=== PATIENT | female | born 1960 | race Caucasian/White ===

== ENCOUNTER 2019-06-09 21:19 | Emergency (ER) | payer OTHER ==
[2019-06-09] MEDS ORDERED: hydrOXYzine HCL TAB* 25 MG PO ONE (21:35)
[2019-06-09] MEDS ORDERED: Famotidine TAB* 20 MG PO ONE (21:35)
[2019-06-09] MEDS ORDERED: predniSONE TAB* 50 MG PO ONE (21:36)
--- NOTE | 2019-06-09 22:24 | ED ---
Allergic Reaction/Systemic - HPI Summary HPI Summary: This patient is a 59 year old M presenting to [facility] with a chief complaint of multiple yellow jacket stings on left wrist, right ankle, and right forearm since today at 2030. Pt took Claritin 10 mg [employer] and feels better now. She states her son and mother had anaphylactic shock from bee stings. The patient rates the pain 5/10 in severity. Symptoms aggravated by nothing. Symptoms alleviated by nothing. Patient reports tongue swelling, hives, lightheadedness. Patient denies hx of allergic response to bee venom, any medical history, and use of medications. - History of Current Complaint Chief Complaint: EDAllergicReaction Time Seen by Provider: 06/09/19 21:29 Hx Obtained From: Patient Onset/Duration: Sudden Onset, Started hours ago - 2, Still Present Timing: Constant, Lasting Hours - 2 Severity Initially: Moderate Severity Currently: Mild Pain Intensity: 5 Pain Scale Used: 0-10 Numeric Location: Other - yellow jacket stings on left wrist, right ankle, and right forearm Aggravating Factor(s): Nothing Alleviating Factor(s): Nothing Associated Signs And Symptoms: Positive: Lightheadedness, Rash - hives, Other: - positive - tongue swelling - Allergies/Home Medications Allergies/Adverse Reactions: Allergies Allergy/AdvReac Type Severity Reaction Status Date / Time No Known Allergies Allergy Verified 06/09/19 21:26 PMH/Surg Hx/FS Hx/Imm Hx Previously Healthy: No Endocrine/Hematology History: Denies: Hx Blood Disorders Cardiovascular History: Denies: Hx Aneurysm, Hx Atrial Fibrillation Respiratory History: Denies: Hx Asthma GI History: Denies: Hx Diverticulosis Sensory History: Denies: Hx Legally Blind, Hx Hearing Problem EENT History: Denies: Hx Deafness - Surgical History Surgical History: Unable to Obtain/Confirm Infectious Disease History: No Infectious Disease History: Reports: Traveled Outside the [place] in Last 30 Days - Family History Known Family History: Positive: Other - son and mother had anaphylactic shocks from bee stings - Social History Alcohol Use: None Hx Substance Use: No Substance Use Type: Reports: None Hx Tobacco Use: No Smoking Status (MU): Never Smoked Tobacco Review of Systems ENT: Other - positive - tongue swelling Skin: Other - positive - hives Neurological: Other - positive - lightheadedness All Other Systems Reviewed And Are Negative: Yes Physical Exam - Summary Physical Exam Summary: VITAL SIGNS: Reviewed. GENERAL: Patient is a well-developed and nourished FEMALE who is lying comfortable in the stretcher. Patient is not in any acute respiratory distress. HEAD AND FACE: No signs of trauma. No ecchymosis, hematomas or skull depressions. No sinus tenderness. EYES: PERRLA, EOMI x 2, No injected conjunctiva, no nystagmus. EARS: Hearing grossly intact. Ear canals and tympanic membranes are within normal limits. MOUTH: Oropharynx within normal limits. NECK: Supple, trachea is midline, no adenopathy, no JVD, no carotid bruit, no c- spine tenderness, neck with full ROM CHEST: Symmetric, no tenderness at palpation LUNGS: Clear to auscultation bilaterally. No wheezing or crackles. CVS: Regular rate and rhythm, S1 and S2 present, no murmurs or gallops appreciated. ABDOMEN: Soft, non-tender. No signs of distention. No rebound no guarding, and no masses palpated. Bowel sounds are normal. EXTREMITIES: FROM in all major joints, no edema, no cyanosis or clubbing. NEURO: Alert and oriented x 3. No acute neurological deficits. Speech is normal and follows commands. SKIN: Erythema and edema at left wrist, right ankle and right forearm. Dry and warm Triage Information Reviewed: Yes Vital Signs On Initial Exam: Initial Vitals Temp Pulse Resp BP Pulse Ox 98.3 F 60 16 141/59 98 06/09/19 21:20 06/09/19 21:20 06/09/19 21:20 06/09/19 21:20 06/09/19 21:20 Vital Signs Reviewed: Yes Diagnostics - Vital Signs Vital Signs Temp Pulse Resp BP Pulse Ox 06/09/19 21:31 59 16 130/79 98 06/09/19 21:20 98.3 F 60 16 141/59 98 - Laboratory Lab Statement: Any lab studies that have been ordered have been reviewed, and results considered in the medical decision making process. Allergic Reaction Course/Dx - Course Course Of Treatment: This patient is a 59 year old M presenting to [facility] with a chief complaint of multiple yellow jacket stings on left wrist, right ankle, and right forearm since today at 2030. Pt took Claritin 10 mg [employer] and feels better now. She states her son and mother had anaphylactic shock from bee stings. The patient rates the pain 5/10 in severity. Symptoms aggravated by nothing. Symptoms alleviated by nothing. Patient reports tongue swelling, hives , lightheadedness. Patient denies hx of allergic response to bee venom, any medical history, and use of medications. Physical exam shows erythema and edema at left wrist, right ankle and right forearm. During the ED course, the pt was given Pepcid TAB, Atarax TAB, and Deltasone TAB. Dx is insect bite/ sting. Pt is agreeable to discharge. Pt was told to follow up with a primary care provider within 1-2 days and to return to the ED for any new or worsening symptoms. - Diagnoses Provider Diagnoses: Allergic reaction Discharge - Sign-Out/Discharge Documenting (check all that apply): Patient Departure - discharge Patient Received Moderate/Deep Sedation with Procedure: No - Discharge Plan Condition: Stable Disposition: HOME Prescriptions: hydrOXYzine HCL TAB* [Atarax 25 MG TAB*] 25 mg PO QID PRN #20 tab PRN Reason: Itching predniSONE TAB* [Deltasone TAB*] 50 mg PO DAILY #5 tab Patient Education Materials: Insect Bite or Sting (ED) Referrals: No Primary Care Phys,NOPCP [Primary Care Provider] - [facility] [Outside] - 1 Day Additional Instructions: Follow up with a primary care provider within 1-2 days. Return to the ED for any new or worsening symptoms. - Attestation Statements Document Initiated by Jarrettibe: Yes Documenting Scribe: Benito Hamilton Provider For Whom Rosemary is Documenting (Include Credential): Dr. Nohelia Vega MD Scribe Attestation: IBenito scribed for Dr. Nohelia Vega MD on 06/10/19 at 0106. Status of Scribe Document: Ready
[2019-06-09 22:31] VITALS: BP 119/80
== END 2019-06-09 22:30 | disposition home or self-care (01) ==
LOC: ED 21:19
DX: T63.461A Toxic effect of venom of wasps, accidental (unintentional), initial encounter (principal); Y92.9 Unspecified place or not applicable
CPT/HCPCS: 99282; A9270-GY; J7512